=== PATIENT | female | born 1995 | race Caucasian/White ===

== ENCOUNTER 2021-08-26 15:39 | Emergency (ER) | payer OTHER ==
[~2021-08-26] VITALS: Ht 160 cm; Wt 59.0 kg
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
[2021-08-26 15:40] VITALS: BP 120/82
== END 2021-08-26 22:23 | disposition home or self-care (01) ==
LOC: ER 15:39
DX: F10.129 Alcohol abuse with intoxication, unspecified (principal); Y90.9 Presence of alcohol in blood, level not specified